=== PATIENT | female | born 1995 | race Caucasian/White ===

== ENCOUNTER 2016-11-25 18:40 | Emergency (ER) | payer BC, OTHER ==
[~2016-11-25] VITALS: Ht 170.2 cm; Wt 84.1 kg
[2016-11-25 18:45] VITALS: TEMP 36.6; Ht 170.2 cm; Wt 84.1 kg
[2016-11-25] MEDS ORDERED: KETOROLAC TROMETHAMINE 30 MG/ML VIAL IV STA (19:01)
[2016-11-25] MEDS ORDERED: MULT-506 PO (19:29)
[2016-11-25] MEDS ORDERED: AMPH10TA2 PO (19:29)
[2016-11-25] MEDS ORDERED: BCPILLS PO (19:29)
[2016-11-25] MEDS ORDERED: EPP3/2 IM (19:29)
[2016-11-25 19:36] LABS: BASO % 0.2 %; BASO ABS # 0.01 K/uL (0-0.2); COMPLETE YES; HEMATOCRIT 41.1 % (37-47); LYMPH % 33.1 %; LYMPH ABS # 1.97 K/uL (1.2-3.4); MEAN CELL VOLUME 88.2 fL (80-100); MEAN CORPUSCULAR HEMOGLOBIN 29.8 pg (25-34); MEAN CORPUSCULAR HGB CONC 33.8 g/dl (32-36); MEAN PLATELET VOLUME 9.9 fL (7.4-10.4); MONO % 5.7 %; PLATELET COUNT 258 K/uL (130-400); RED BLOOD COUNT 4.66 M/uL (4.2-5.4); WHITE BLOOD COUNT 5.95 K/uL (4.8-10.8)
[2016-11-25 19:52] LABS: BUN/CREATININE RATIO 15.3 (10-20); CALCIUM 9.2 mg/dl (8.5-10.1); CREATININE 0.83 mg/dl (0.60-1.20); POTASSIUM 3.6 mmol/L (3.5-5.1)
[2016-11-25 19:59] LABS: URINE APPEARANCE CLEAR (CLEAR); URINE BILIRUBIN NEG (NEG); URINE COLOR YELLOW; URINE EPITHELIAL CELL AUTO >30 /lpf (0-5); URINE NITRITE NEG (NEG); URINE PH 6.5 (4.5-7.5); URINE SPECIFIC GRAVITY 1.031 (1.000-1.030); UROBILINOGEN NEG (NEG)
[2016-11-25 20:00] LABS: MANUAL MICROSCOPIC REQUIRED? NO; REVIEW REQ? NO
--- NOTE | 2016-11-25 20:00 | DIAGNOSTIC IMAGING REPORT ---
LUMBAR SPINE WITHOUT CT DOSE: 801.72 mGy.cm HISTORY: Pain Back pain TECHNIQUE: Multiaxial CT images of the lumbar spine were performed and reformatted in the sagittal and coronal plane without the use of contrast. A dose lowering technique was utilized adhering to the principles of ALARA. COMPARISON: None. FINDINGS: No fractures. No subluxation. Paraspinal soft tissues are unremarkable. Transaxial images suggests a broad-based bulging disc at L5-S1. Impact upon the thecal sac is mild. Neuroforamina are patent bilaterally at all levels. IMPRESSION: 1. Mild/moderate broad-based bulging disc L5-S1. 2. Otherwise negative lumbar spine. The above report was generated using voice recognition software. It may contain grammatical, syntax or spelling errors. Electronically signed by: Kevan Talamantes M.D. 11/25/2016 7:59 PM Dictated Date/Time: 11/25/2016 7:57 PM
[2016-11-25 20:08] LABS: PREG INTERNAL NEGATIVE QC NEG CLEAR BACKGROUND; PREG INTERNAL POSITIVE QC POS CONTROL LINE
[2016-11-25 20:45] VITALS: BP 136/69; PULSE 76; O2SAT 98
[2016-11-25] MEDS ORDERED: KETO10TA PO (21:00)
[2016-11-25] MEDS ORDERED: PERCOCET HOME PACK PO ONE (21:00)
[2016-11-25] MEDS ORDERED: OXYC-57 PO (21:00)
--- NOTE | 2016-11-25 21:00 | EMERGENCY ROOM VISIT NOTE ---
History Report prepared by Marta: Karuna Pereyra Under the Supervision of: Dr. Reji Brantley D.O. First contact with patient: 18:54 Chief Complaint: BACK PAIN Stated Complaint: BACK PAIN History of Present Illness The patient is a 21 year old female who presents to the Emergency Room with complaints of intermittent stabbing midline lower back pain beginning this morning. The patient states that last night her mom fell and she helped to pick her up but did not feel any pain afterwards. She reports that this morning she sat down at work when her back suddenly started hurting. She describes the pain as a stabbing and notes that it is worsened with movement and straightening her spine. The patient notes that she is not able to walk. She denies any trauma, numbness, tingling, weakness, incontinence, and abdominal pain. She reports no history of back issues. The patient is on control and her LNMP was 1 month ago. She notes that she is due for her period tomorrow. Source of History: patient Onset: this morning Position: back (lower) Quality: stabbing Timing: constant Associated Symptoms: + abdominal pain, + weakness, + numbness Note: She denies any trauma, tingling, incontinence. Review of Systems See HPI for pertinent positives & negatives. A total of 10 systems reviewed and were otherwise negative. Past Medical & Surgical Medical Problems: (1) No Known Active Medical Problems Family History Cancer Social History Smoking Status: Never Smoker Smokeless Tobacco Use: No Alcohol Use: occasionally Marital Status: single Housing Status: lives with roommate Occupation Status: [employer] student Current/Historical Medications Scheduled Control Pills ( Control Pills), 1 TAB PO DAILY Multivitamin (Multivitamin), 1 TAB PO DAILY Scheduled PRN Amphetamine-Dextroamphetamine 10MG (Adderall 10MG), 10 MG PO DAILY PRN for ADHD Epinephrine (Epipen), 0.3 MG IM UD PRN for ALLERGIC REACTION Ketorolac Tromethamine (Toradol), 1 TAB PO Q6H PRN for Pain Oxycodone/Acetaminophen 5MG/325MG (Percocet 5MG/325MG), 1 TAB PO Q6H PRN for Pain Allergies Uncoded Allergies: APPLES (Allergy, Severe, ANAPHYLAXIS, 11/25/16) CHEERIES (Allergy, Severe, ANAPHYLAXIS, 11/25/16) Physical Exam Vital Signs Date Time Temp Pulse Resp B/P (MAP) Pulse Ox O2 Delivery O2 Flow Rate FiO2 11/25/16 20:45 76 20 136/69 98 Room Air 11/25/16 18:45 36.6 84 18 147/95 100 Room Air Physical Exam CONSTITUTIONAL/VITAL SIGNS: Reviewed / noted above. GENERAL: Non-toxic in appearance. INTEGUMENTARY: Warm, dry, and [place]. HEAD: Normocephalic. EYES: without scleral icterus or trauma. ENT/OROPHARYNX: clear and moist. LYMPHADENOPATHY/NECK: Is supple without lymphadenopathy or meningismus. RESPIRATORY: Lungs clear and equal. CARDIOVASCULAR: Regular rate and rhythm. GI/ABDOMEN: Soft and nontender. No organomegaly or pulsatile mass. No rebound or guarding. Normal bowel sounds. EXTREMITIES: Warm and well perfused. BACK: No CVA tenderness. NEUROLOGICAL: Intact without focal deficits. PSYCHIATRIC: normal affect. MUSCULOSKELETAL: Normally developed with good muscle tone. Medical Decision & Procedures ER Provider Diagnostic Interpretation: CT results as stated below per my review and radiologist interpretation: LUMBAR SPINE WITHOUT COMPARISON: None. FINDINGS: No fractures. No subluxation. Paraspinal soft tissues are unremarkable. Transaxial images suggests a broad-based bulging disc at L5-S1. Impact upon the thecal sac is mild. Neuroforamina are patent bilaterally at all levels. IMPRESSION: 1. Mild/moderate broad-based bulging disc L5-S1. 2. Otherwise negative lumbar spine. The above report was generated using voice recognition software. It may contain grammatical, syntax or spelling errors. Electronically signed by: Kevan Talamantes M.D. 11/25/2016 7:59 PM Dictated Date/Time: 11/25/2016 7:57 PM Laboratory Results 11/25/16 19:20 Red Blood Count 4.66, Mean Corpuscular Volume 88.2, Mean Corpuscular Hemoglobin 29.8, Mean Corpuscular Hemoglobin Concent 33.8, Mean Platelet Volume 9.9, Neutrophils (%) (Auto) 60.0, Lymphocytes (%) (Auto) 33.1, Monocytes (%) (Auto) 5.7, Eosinophils (%) (Auto) 1.0, Basophils (%) (Auto) 0.2, Neutrophils # (Auto) 3.57, Lymphocytes # (Auto) 1.97, Monocytes # (Auto) 0.34, Eosinophils # (Auto) 0.06, Basophils # (Auto) 0.01 11/25/16 19:20 Test 11/25/16 19:20 White Blood Count 5.95 K/uL (4.8-10.8) Red Blood Count 4.66 M/uL (4.2-5.4) Hemoglobin 13.9 g/dL (12.0-16.0) Hematocrit 41.1 % (37-47) Mean Corpuscular Volume 88.2 fL (80-100) Mean Corpuscular Hemoglobin 29.8 pg (25-34) Mean Corpuscular Hemoglobin Concent 33.8 g/dl (32-36) Platelet Count 258 K/uL (130-400) Mean Platelet Volume 9.9 fL (7.4-10.4) Neutrophils (%) (Auto) 60.0 % Lymphocytes (%) (Auto) 33.1 % Monocytes (%) (Auto) 5.7 % Eosinophils (%) (Auto) 1.0 % Basophils (%) (Auto) 0.2 % Neutrophils # (Auto) 3.57 K/uL (1.4-6.5) Lymphocytes # (Auto) 1.97 K/uL (1.2-3.4) Monocytes # (Auto) 0.34 K/uL (0.11-0.59) Eosinophils # (Auto) 0.06 K/uL (0-0.5) Basophils # (Auto) 0.01 K/uL (0-0.2) RDW Standard Deviation 37.7 fL (36.4-46.3) RDW Coefficient of Variation 11.8 % (11.5-14.5) Immature Granulocyte % (Auto) 0.0 % Immature Granulocyte # (Auto) 0.00 K/uL (0.00-0.02) Erythrocyte Sedimentation Rate 3 mm/hr (0-21) Urine Color YELLOW Urine Appearance CLEAR (CLEAR) Urine pH 6.5 (4.5-7.5) Urine Specific [place] 1.031 (1.000-1.030) Urine Protein NEG (NEG) Urine Glucose (UA) NEG (NEG) Urine Ketones TRACE (NEG) Urine Occult Blood NEG (NEG) Urine Nitrite NEG (NEG) Urine Bilirubin NEG (NEG) Urine Urobilinogen NEG (NEG) Urine Leukocyte Esterase TRACE (NEG) Urine WBC (Auto) 1-5 /hpf (0-5) Urine RBC (Auto) 0-4 /hpf (0-4) Urine Hyaline Casts (Auto) 1-5 /lpf (0-5) Urine Epithelial Cells (Auto) >30 /lpf (0-5) Urine Bacteria (Auto) NEG (NEG) Anion Gap 7.0 mmol/L (3-11) Est Creatinine Clear Calc Drug Dose 118.5 ml/min Estimated GFR () 116.0 Estimated GFR (Non- 100.1 BUN/Creatinine Ratio 15.3 (10-20) Calcium Level 9.2 mg/dl (8.5-10.1) Human Chorionic Gonadotropin, Qual NEG (NEG) Laboratory results as stated above per my review. Medications Administered Medications (Trade) Dose Ordered Sig/Rainer Route Start Time Stop Time Status Last Admin Dose Admin Ketorolac Tromethamine (Toradol Inj) 30 mg NOW STAT IV 11/25/16 19:01 11/25/16 19:07 DC 11/25/16 19:36 30 MG ED Course 185: Previous medical records were reviewed. The patient was evaluated in room B9. A complete history and physical examination was performed. 1900: Toradol Inj 30mg IV. 2099: Oxycodone/Acetaminophen 1 homepack PO. 2102: On reevaluation, the patient is doing well. I discussed the results and findings with the patient. She verbalized agreement of the treatment plan. The patient was discharged home. Medical Decision Differential considered includes cauda equina syndrome, conus medullaris, spinal cord compression syndrome, peripheral nerve compression, fractures or subluxations, intra-abdominal pathology such as abdominal aortic aneurysm or kidney stones, muscle strain, transverse myelitis, spinal cord injury. This is a 21-year-old female who presents to the ED with a chief complaint of low back pain. The patient states that yesterday she helped her mother off the floor after she fell. Other than that she denies any specific trauma to her back. She did not have back pain after helping her mother but this morning developed low back pain. She has had throughout the day today. The patient has difficulty with an ablation due to the back pain which increases with standing upright. She denies any recent illness, fevers, chills. Last menstrual period was last week. No abdominal pains or urinary symptoms. Physical exam was unremarkable for any reproducible back pain. Abdomen is soft and nontender. CT scan of the abdomen and pelvis reveals a mild to moderate broad based disc bulging at the L5-S1 level. Sedimentation rate is normal, CBC is normal, test is negative, urine did not show infection and PRP was normal. The patient was treated with IV Toradol. She was given a Percocet home pack. She was told results. She is felt to be stable for discharge. Her exam did not reveal any lower extremity abnormalities. No bowel or bladder dysfunction. She denies any numbness, tingling or weakness in her lower extremities. She has normal reflexes and normal strength. The patient was discharged with Percocet and Toradol. If symptoms persist, physical therapy might be beneficial. Medication Reconcilliation Current Medication List: was personally reviewed by me Blood Pressure Screening Patient's blood pressure: Elevated blood pressure Blood pressure disposition: Elevated BP felt to be situational Impression Primary Impression: Lumbar herniated disc Scribe Attestation The scribe's documentation has been prepared under my direction and personally reviewed by me in its entirety. I confirm that the note above accurately reflects all work, treatment, procedures, and medical decision making performed by me. Departure Information Dispostion Home / Self-Care Prescriptions Ketorolac Tromethamine (TORADOL) 10 Mg Tab 1 TAB PO Q6H Y for Pain for 5 Days, #20 TAB Prov: Reji Brantley D.O. 11/25/16 Oxycodone/Acetaminophen 5MG/325MG (PERCOCET 5MG/325MG) Tab 1 TAB PO Q6H Y for Pain, #20 TAB Prov: Reji Brantley D.O. 11/25/16 Referrals No Doctor, Assigned (PCP) Forms HOME CARE DOCUMENTATION FORM, IMPORTANT VISIT INFORMATION Patient Instructions ED Disk Intervertebral Herniated, My [facility] Additional Instructions Percocet as prescribed. No driving within 6 hours of use. Do not take additional Tylenol while taking Percocet. Take Toradol as needed for pain after Percocet is gone or if you do not need a stronger medication. After Toradol was done, take 2-3 ibuprofen (200MG) tablets every 6 hours or 2 regular strength Tylenol (325MG) tablets every 4 hours as needed for pain. If symptoms persist, see her doctor for follow-up and possible physical therapy referral. Avoid heavy lifting or other activities that might cause additional injury or strain to the back.
== END 2016-11-25 21:14 | disposition home or self-care (01) ==
LOC: C.EDB 18:42
DX: M51.26 Other intervertebral disc displacement, lumbar region (principal); Z79.3 Long term (current) use of hormonal contraceptives; Z80.9 Family history of malignant neoplasm, unspecified; Z79.899 Other long term (current) drug therapy